=== PATIENT | female | born 1950 | race Hispanic/Latino ===

== ENCOUNTER 2018-12-28 16:58 | Inpatient (IN) | payer MEDICARE, OTHER ==
[~2018-12-28] VITALS: Ht 160 cm; Wt 67.2 kg
[2018-12-28] MEDS ORDERED: CEFTRIAXONE SODIUM 1 GM ONE (17:27)
[2018-12-28] MEDS ORDERED: SODIUM CHLORIDE 0.9% 50 ML IV ONE (17:28)
[2018-12-28] MEDS ORDERED: ACETAMINOPHEN EXTRA STRENGTH 500 MG TABLET ONE (17:28)
[2018-12-28 17:32] LABS: BASOPHILS % (AUTO) 0.3 % (0.0-5.0); EOSINOPHILS % (AUTO) 0.3 % (0.0-8.0); HEMATOCRIT 36.7 % (36-48); MEAN CORPUSCULAR HEMOGLOBIN 29.2 pg (27.0-33.0); MEAN CORPUSCULAR VOLUME 85.8 fL (79-99); MONOCYTES % (AUTO) 6.4 % (3.0-13.0); PLATELET COUNT (AUTO) 523 K/uL (130-400); RED BLOOD CELL COUNT(AUTO) 4.28 MIL/uL (4.00-5.50); RED CELL DISTRIBUTION WIDTH 12.8 % (11.0-15.5); WHITE BLOOD COUNT (AUTO) 22.9 K/uL (4.8-10.8)
[2018-12-28] MEDS ORDERED: ACETAMINOPHEN ELIXIR 325 MG/10.15ML UDCUP ONE (17:33)
[2018-12-28 17:47] LABS: CREATININE 0.8 mg/dL (0.5-1.5); INR 1.02 (0.85-1.15); PARTIAL THROMBOPLASTIN TIME 32.7 SEC (26.3-35.5); POTASSIUM 4.7 mmol/L (3.5-5.1); PROTHROMBIN TIME 10.7 SEC (9.6-11.6)
[2018-12-28 17:54] LABS: BILIRUBIN,TOTAL 0.9 mg/dL (0.2-1.0); TOTAL PROTEIN, SERUM 9.2 g/dL (6.0-8.3)
[2018-12-28 18:06] LABS: ALBUMIN 2.4 g/dL (3.5-5.0)
[2018-12-28] MEDS ORDERED: VANCOMYCIN 1GM+NS 250ML 250 ML IV ONE (18:18)
[2018-12-28] MEDS ORDERED: ZOSYN 3.375GM+NS 50ML 50 ML IV ONE (22:23)
[2018-12-28] MEDS ORDERED: INSULIN HUMULIN R 100 UNIT/ML 3ML ONE (22:24)
[2018-12-28] MEDS ORDERED: VANCOMYCIN PROTOCOL PER PHARMACY IV SCH (23:45)
[2018-12-28] MEDS ORDERED: SODIUM CHLORIDE 0.9% 10 ML VIAL IVP SCH (23:45)
[2018-12-28] MEDS ORDERED: ONDANSETRON HCL 4 MG/2 ML VIAL IVP PRN (23:45)
[2018-12-28] MEDS ORDERED: DEXTROSE 50%-WATER 50 ML DISP.SYRIN IV PRN (23:45)
[2018-12-28] MEDS ORDERED: ACETAMINOPHEN 325 MG TAB PO PRN (23:45)
[2018-12-28] MEDS ORDERED: MORPHINE SULFATE 2 MG/ML 1ML SYG IVP PRN (23:45)
[2018-12-28] MEDS ORDERED: GLUCAGON 1MG KIT 1 MG ML IM PRN (23:45)
[2018-12-29 05:30] VITALS: BP 144/67
[2018-12-29] MEDS: INSULIN R PO SS1 SQ SCH ×4 (06:41→20:56)
[2018-12-29 07:00] VITALS: BP 124/65
[2018-12-29] MEDS: ZOSYN 3.375GM+NS 50ML 50 ML IV SCH ×3 (08:21→16:20)
[2018-12-29] MEDS: ENOXAPARIN SODIUM 40 MG/0.4 ML SYRINGE SQ SCH (08:23)
[2018-12-29] MEDS ORDERED: GADODIAMIDE 5 MMOL/10 ML VIAL 5 MMOL/10 ML ML IV ONE (09:11)
--- NOTE | 2018-12-29 09:30 | NUR ---
TAKEN OFF THE UNIT TO MRI VIA W/C IN STABLE CONDITION.
--- NOTE | 2018-12-29 10:00 | NUR ---
RETURN TO THE FLOOR VIA W/C STABLE AND ALERT, NO ACUTE DISTRESS NOTED.
[2018-12-29] MEDS ORDERED: COMPOUND IV REFRIGERATED 1 EACH IVSOLN MISC PRN (10:15)
[2018-12-29 11:00] VITALS: BP 149/70
[2018-12-29] MEDS ORDERED: VANCOMYCIN 500MG+NS 100 ML IV SCH (11:00)
[2018-12-29] MEDS ORDERED: DIPH,PERTUSS(ACELL),TET VAC/PF 0.5 ML VIAL IM ONE ×2 (15:00→21:00)
--- NOTE | 2018-12-29 15:21 | NUR ---
CONSULT CALLED TO DR PRICE'S OFFICE, SPOKE WITH CHAGO ENRIQUEZ.
[2018-12-29 16:00] VITALS: BP 120/80
[2018-12-29] MEDS: CLINDAMYCIN 300 MG/D5W 50 ML 50 ML IV SCH ×2 (16:20→20:48)
--- NOTE | 2018-12-29 16:20 | NUR ---
Tdap VACCINATION UNAVAILABLE PHARMACY WAS NOTIFIED.
--- NOTE | 2018-12-29 18:00 | NUR ---
IA- DISCHARGE PLANNING SPOKE W PATIENT AND SISTER AT BEDSIDE - LIVES WITH SIBS, NEPHEW JOLENE RAMON TO SUPPLY TRANSPORT HOME, PT STATES USES [facility], STATES DOES NOT GO TO THE MD OFFICE. STATES WILLING TO GO TO A FACLITY IF HER SIS TER CAN BE BESIDE HER. DR. PRICE ARRIVED TO DO WOUND CARE- HE STATED HE COULD FOLLOW AT [facility] IF DISCHARGED THERE Addendum: 12/30/18 at 0837 by VÍCTOR GILBERT RN CM Amended: Links added.
--- NOTE | 2018-12-29 19:00 | NUR ---
DR PRICE CAME IN TO SEE THE PATIENT AND REMOVED THE SCABS FROM HER FEET AT THE BEDSIDE AND APPLIED DRESSING TO BOTH FEET. SAID THAT HE WILL HAVE TO PERFORM SURGERY TOMORROW.
[2018-12-29 20:00] VITALS: BP 133/62
[2018-12-29] MEDS: HYDROCODONE/ACETAMINOPHEN 5/325 MG TAB PO PRN (20:47)
[2018-12-29] MEDS: INSULIN GLARGINE 100 UNITS/ML 10 ML VIAL SQ SCH (21:00)
[2018-12-29 23:51] VITALS: BP 123/60
[2018-12-30] VITALS (24 sets, daily range): BP systolic 98–154; BP diastolic 50–83
[2018-12-30] MEDS: ZOSYN 3.375GM+NS 50ML 50 ML IV SCH ×4 (00:25→23:54)
[2018-12-30] MEDS: CLINDAMYCIN 300 MG/D5W 50 ML 50 ML IV SCH ×4 (03:19→20:37)
[2018-12-30 05:29] LABS: HEMATOCRIT 32.1 % (36-48); MEAN CORPUSCULAR HEMOGLOBIN 28.8 pg (27.0-33.0); MEAN CORPUSCULAR HGB CONC 33.2 g/dL (32.0-36.0); MEAN CORPUSCULAR VOLUME 86.7 fL (79-99); PLATELET COUNT (AUTO) 517 K/uL (130-400); RED BLOOD CELL COUNT(AUTO) 3.71 MIL/uL (4.00-5.50); RED CELL DISTRIBUTION WIDTH 12.9 % (11.0-15.5); WHITE BLOOD COUNT (AUTO) 21.5 K/uL (4.8-10.8)
[2018-12-30 05:54] LABS: ALBUMIN 1.9 g/dL (3.5-5.0); BILIRUBIN,TOTAL 0.7 mg/dL (0.2-1.0); CREATININE 0.8 mg/dL (0.5-1.5); MAGNESIUM 2.1 mg/dL (1.80-2.40); POTASSIUM 3.5 mmol/L (3.5-5.1); TOTAL PROTEIN, SERUM 7.1 g/dL (6.0-8.3)
[2018-12-30] MEDS: INSULIN R PO SS1 SQ SCH ×4 (06:06→20:42)
[2018-12-30] MEDS: ENOXAPARIN SODIUM 40 MG/0.4 ML SYRINGE SQ SCH (09:00)
[2018-12-30] MEDS ORDERED: DiphenhydrAMINE HCL 50 MG/ML VIAL IVP PRN (09:15)
--- NOTE | 2018-12-30 12:09 | NUR ---
RDSCREEN - LOW ALB Patient with DM Foot Ulcer. Patient NPO for procedure at time of visit. When medically feasible, rec to advance diet as tolerated to goal of Heart Healthy, 75gm CCD. Patient LBM 12/26/18. Patient monitored labs: Cl 99, Glu 226, Alb 1.9. RD to continue to monitor. Please notify RD as nutritional concerns arise. Thank you. Addendum: 12/30/18 at [address] Amended: Links added.
[2018-12-30] MEDS ORDERED: BUPIVACAINE/PF 0.5% 30ML VIAL ONE (12:42)
[2018-12-30] MEDS ORDERED: LIDOCAINE HCL 1% 20 ML VIAL ONE (12:49)
[2018-12-30] MEDS: VANCOMYCIN 1GM+NS 250ML 250 ML IV SCH (12:49)
[2018-12-30] MEDS ORDERED: PROPOFOL 10 MG/ML 20ML VIAL IV ONE ×3 (12:51→14:21)
[2018-12-30] MEDS ORDERED: LIDOCAINE PF 2% 5ML ABBOJECT ONE (12:51)
[2018-12-30] MEDS ORDERED: MIDAZOLAM HCL 1 MG/ML 2ML VIAL ONE (12:51)
[2018-12-30] MEDS ORDERED: MEPERIDINE-PF 25 MG/ML SYG ONE ×2 (15:07→15:15)
--- NOTE | 2018-12-30 17:25 | NUR ---
1400 clindamycin not given patient off unit.
[2018-12-30] MEDS: MORPHINE SULFATE 2 MG/ML 1ML SYG IVP PRN (18:26)
[2018-12-30] MEDS: SODIUM CHLORIDE 0.9% 1000ML 1,000 ML IV SCH (19:10)
[2018-12-30] MEDS: INSULIN GLARGINE 100 UNITS/ML 10 ML VIAL SQ SCH (20:44)
[2018-12-31] VITALS: BP_SYST 108; BP_SYST 137; BP_DIAS 56; BP_DIAS 68
[2018-12-31 00:23] LABS: APPEARANCE,URINE Clear (CLEAR); BILIRUBIN,URINE Negative (NEGATIVE); COLOR,URINE Yellow (YELLOW); GLUCOSE, URINE (UA) >=1000 mg/dL (NEGATIVE); KETONES,URINE Trace mg/dL (NEGATIVE); LEUKOCYTE ESTERASE ,URINE Negative (NEGATIVE); NITRATE,URINE Negative (NEGATIVE); OCCULT BLOOD,URINE Negative (NEGATIVE); PH,URINE 5.5 (5.0-8.0); PROTEIN,URINE Trace (NEGATIVE)
[2018-12-31 00:48] LABS: RBC,URINE 0-1 /HPF (0-1); WBC,URINE 0-1 /HPF (0-1)
[2018-12-31 00:49] LABS: BACTERIA,URINE Few /HPF (None Seen); SQUAMOUS EPITHELIAL CELL,UR 0-2 /HPF (0-2); YEAST,URINE BUDDING Moderate /HPF (None Seen)
[2018-12-31] MEDS: CLINDAMYCIN 300 MG/D5W 50 ML 50 ML IV SCH ×4 (02:02→20:15)
[2018-12-31 04:00] VITALS: BP 109/54
[2018-12-31] MEDS: SODIUM CHLORIDE 0.9% 1000ML 1,000 ML IV SCH ×2 (04:19→20:28)
[2018-12-31] MEDS: MORPHINE SULFATE 2 MG/ML 1ML SYG IVP PRN ×2 (04:27→16:07)
[2018-12-31 04:45] LABS: MEAN CORPUSCULAR HEMOGLOBIN 28.8 pg (27.0-33.0); MEAN CORPUSCULAR HGB CONC 33.5 g/dL (32.0-36.0); MEAN CORPUSCULAR VOLUME 85.9 fL (79-99); PLATELET COUNT (AUTO) 495 K/uL (130-400); RED BLOOD CELL COUNT(AUTO) 3.49 MIL/uL (4.00-5.50); RED CELL DISTRIBUTION WIDTH 12.8 % (11.0-15.5); WHITE BLOOD COUNT (AUTO) 14.8 K/uL (4.8-10.8)
[2018-12-31 05:02] LABS: CREATININE 0.7 mg/dL (0.5-1.5); POTASSIUM 3.2 mmol/L (3.5-5.1)
[2018-12-31] MEDS: INSULIN R PO SS1 SQ SCH ×4 (06:19→20:26)
[2018-12-31 08:00] VITALS: BP 118/66
[2018-12-31] MEDS: ZOSYN 3.375GM+NS 50ML 50 ML IV SCH ×3 (09:05→23:52)
[2018-12-31] MEDS: ENOXAPARIN SODIUM 40 MG/0.4 ML SYRINGE SQ SCH (09:06)
[2018-12-31] MEDS ORDERED: LACTULOSE 20 GM/30 ML UDCUP PO PRN (10:00)
[2018-12-31] MEDS ORDERED: LIDOCAINE HCL-MPF 1% 2ML VIAL IVP PRN (10:15)
[2018-12-31] MEDS ORDERED: POTASSIUM CHLORIDE 20 MEQ ERTAB PO PRN (10:15)
[2018-12-31] MEDS ORDERED: POTASSIUM CHLORIDE 10MEQ/100ML 100 ML IV PRN (10:15)
[2018-12-31 12:00] VITALS: BP 131/68
[2018-12-31] MEDS: VANCOMYCIN 1GM+NS 250ML 250 ML IV SCH (13:28)
[2018-12-31 16:00] VITALS: BP 149/77
[2018-12-31 19:00] VITALS: BP 130/61
[2018-12-31] MEDS: POTASSIUM CHLORIDE 10% ELIXIR 20 MEQ/15 ML UDCUP PO SCH (20:16)
[2018-12-31] MEDS: INSULIN GLARGINE 100 UNITS/ML 10 ML VIAL SQ SCH (20:27)
[2019-01-01] VITALS: BP 121/61
[2019-01-01] MEDS: SODIUM CHLORIDE 0.9% 1000ML 1,000 ML IV SCH ×4 (01:10→21:44)
[2019-01-01] MEDS: CLINDAMYCIN 300 MG/D5W 50 ML 50 ML IV SCH ×4 (01:57→21:09)
[2019-01-01 04:00] VITALS: BP 147/61
[2019-01-01] MEDS: INSULIN R PO SS1 SQ SCH ×4 (05:37→21:43)
[2019-01-01 07:00] VITALS: BP 142/55
[2019-01-01] MEDS: POTASSIUM CHLORIDE 10% ELIXIR 20 MEQ/15 ML UDCUP PO SCH (09:03)
[2019-01-01] MEDS: ENOXAPARIN SODIUM 40 MG/0.4 ML SYRINGE SQ SCH (09:06)
[2019-01-01] MEDS: ZOSYN 3.375GM+NS 50ML 50 ML IV SCH ×3 (09:14→23:15)
[2019-01-01 09:53] LABS: BASOPHILS % (AUTO) 0.4 % (0.0-5.0); EOSINOPHILS % (AUTO) 2.2 % (0.0-8.0); HEMATOCRIT 29.4 % (36-48); LYMPHOCYTES % (AUTO) 12.4 % (21.0-51.0); MEAN CORPUSCULAR HEMOGLOBIN 28.8 pg (27.0-33.0); MEAN CORPUSCULAR HGB CONC 33.5 g/dL (32.0-36.0); MONOCYTES % (AUTO) 7.6 % (3.0-13.0); NEUTROPHILS % (AUTO) 77.4 % (40.0-77.0); PLATELET COUNT (AUTO) 552 K/uL (130-400); RED BLOOD CELL COUNT(AUTO) 3.42 MIL/uL (4.00-5.50); RED CELL DISTRIBUTION WIDTH 12.7 % (11.0-15.5); WHITE BLOOD COUNT (AUTO) 15.3 K/uL (4.8-10.8)
[2019-01-01 10:04] LABS: CREATININE 0.6 mg/dL (0.5-1.5); POTASSIUM 4.3 mmol/L (3.5-5.1)
[2019-01-01 11:00] VITALS: BP 130/64
[2019-01-01] MEDS: VANCOMYCIN 1GM+NS 250ML 250 ML IV SCH ×2 (11:53→15:39)
[2019-01-01] MEDS: MORPHINE SULFATE 2 MG/ML 1ML SYG IVP PRN (11:56)
[2019-01-01 16:00] VITALS: BP 163/76
--- NOTE | 2019-01-01 16:15 | NUR ---
[facility] REFERRAL cm spoke to pt and family regarding [facility]. CM explained services provided and length of stay. Pt and family agreeable to plan. CM obtained consent for [facility] referral. CM to fax referral and f/u. Family also requesting assistance with medicaid application. CM to defer to [facility] for assistance. Pt also referred to Alisha with DAD's for provider assistance when discharged from [facility]. CM to f/u. Addendum: 01/01/19 at 1617 by ARMEN MARTINEZ CM Amended: Links added.
[2019-01-01 20:00] VITALS: BP 130/64
[2019-01-01] MEDS: INSULIN GLARGINE 100 UNITS/ML 10 ML VIAL SQ SCH (21:44)
[2019-01-02] VITALS (9 sets, daily range): BP systolic 128–166; BP diastolic 63–84
[2019-01-02] MEDS: VANCOMYCIN 1GM+NS 250ML 250 ML IV SCH (01:20)
[2019-01-02] MEDS: MORPHINE SULFATE 2 MG/ML 1ML SYG IVP PRN ×2 (01:25→03:38)
[2019-01-02] MEDS: CLINDAMYCIN 300 MG/D5W 50 ML 50 ML IV SCH ×2 (02:07→08:27)
[2019-01-02 05:35] LABS: HEMATOCRIT 28.5 % (36-48); MEAN CORPUSCULAR HEMOGLOBIN 28.4 pg (27.0-33.0); MEAN CORPUSCULAR HGB CONC 33.2 g/dL (32.0-36.0); MEAN CORPUSCULAR VOLUME 85.4 fL (79-99); PLATELET COUNT (AUTO) 562 K/uL (130-400); RED BLOOD CELL COUNT(AUTO) 3.34 MIL/uL (4.00-5.50); WHITE BLOOD COUNT (AUTO) 11.5 K/uL (4.8-10.8)
[2019-01-02 05:45] LABS: INR 1.05 (0.85-1.15); PARTIAL THROMBOPLASTIN TIME 33.7 SEC (26.3-35.5)
[2019-01-02 05:53] LABS: CREATININE 0.6 mg/dL (0.5-1.5); POTASSIUM 3.4 mmol/L (3.5-5.1)
[2019-01-02] MEDS: INSULIN R PO SS1 SQ SCH ×4 (06:07→21:41)
[2019-01-02] MEDS: ZOSYN 3.375GM+NS 50ML 50 ML IV SCH (08:27)
[2019-01-02] MEDS: SODIUM CHLORIDE 0.9% 1000ML 1,000 ML IV SCH ×2 (08:27→17:16)
[2019-01-02] MEDS: ENOXAPARIN SODIUM 40 MG/0.4 ML SYRINGE SQ SCH (08:45)
[2019-01-02] MEDS ORDERED: HEPARIN SODIUM 1000UNIT/ML 10ML VIAL ONE (10:25)
[2019-01-02] MEDS ORDERED: LIDOCAINE HCL 1% 20 ML VIAL ONE (10:25)
[2019-01-02] MEDS ORDERED: IODIXANOL 320 MG/ML 100 ML VIAL ONE (10:26)
[2019-01-02] MEDS ORDERED: NITROGLYCERIN 5 MG/ML 10 ML VIAL IV ONE (10:26)
[2019-01-02] MEDS ORDERED: FENTANYL CITRATE PF 50 MCG/1 ML 2ML VIAL ONE (11:00)
[2019-01-02] MEDS ORDERED: MIDAZOLAM HCL 1 MG/ML 2ML VIAL ONE (11:00)
[2019-01-02] MEDS ORDERED: SODIUM CHLORIDE 0.9% 1000ML 1,000 ML IV SCH (12:46)
[2019-01-02] MEDS ORDERED: TICAGRELOR 90 MG TABLET ONE (12:55)
[2019-01-02] MEDS ORDERED: ASPIRIN 325MG EC TAB 325 MG TABLET.DR PO ONE (12:55)
[2019-01-02] MEDS ORDERED: ASPIRIN 81MG TAB.CHEW ONE (13:05)
[2019-01-02] MEDS: METRONIDAZOLE 500MG/100ML BAG 100 ML IV SCH ×2 (14:20→21:26)
[2019-01-02] MEDS: CEFTRIAXONE SODIUM 2 GM VIAL IVP SCH (14:20)
--- NOTE | 2019-01-02 15:51 | NUR ---
CM Note: [facility] acceptance, MOT filled out, EMS arranged and faxed for today. Spoke to Rita w/[facility], pt has acceptance, MOT filled out pending MD and house super to sign, EMS arranged and faxed for today. As per Dr Freda shah dc tomorrow s/p angriogram w/Dr Bueno, pending Bian[facility] clearance re: poss revascularization. Primary nurse aware. CM to cont to follow up.
[2019-01-02] MEDS: ATORVASTATIN CALCIUM 40 MG TABLET PO SCH (21:26)
[2019-01-02] MEDS: INSULIN GLARGINE 100 UNITS/ML 10 ML VIAL SQ SCH (21:40)
[2019-01-02] MEDS ORDERED: TICAGRELOR 90 MG TABLET PO SCH (22:00)
[2019-01-03] VITALS (26 sets, daily range): BP systolic 106–158; BP diastolic 53–87
[2019-01-03] MEDS: SODIUM CHLORIDE 0.9% 1000ML 1,000 ML IV SCH ×3 (03:10→23:10)
[2019-01-03] MEDS: METRONIDAZOLE 500MG/100ML BAG 100 ML IV SCH ×4 (04:57→21:08)
[2019-01-03 05:21] LABS: HEMATOCRIT 29.7 % (36-48); MEAN CORPUSCULAR HGB CONC 33.7 g/dL (32.0-36.0); MEAN CORPUSCULAR VOLUME 85.9 fL (79-99); PLATELET COUNT (AUTO) 653 K/uL (130-400); RED BLOOD CELL COUNT(AUTO) 3.46 MIL/uL (4.00-5.50); WHITE BLOOD COUNT (AUTO) 12.4 K/uL (4.8-10.8)
[2019-01-03 05:33] LABS: CREATININE 0.7 mg/dL (0.5-1.5); POTASSIUM 3.3 mmol/L (3.5-5.1)
[2019-01-03] MEDS: INSULIN R PO SS1 SQ SCH ×4 (05:33→21:11)
--- NOTE | 2019-01-03 07:45 | NUR ---
Report to oncoming Nurse Informed Glen Mcmahan RN who is taking over, that the patient recieved [facility] last night Per Dr. Bueno order post angiogram. Also informed Glen Mcmahan RN that platelet this morning was also elevated. Patient is pending surgery with DR. Valeriy Woodruff
[2019-01-03] MEDS: CLOPIDOGREL BISULFATE 75 MG TAB PO SCH (09:00)
--- NOTE | 2019-01-03 11:10 | NUR ---
REPORT COMMUNICATED TO MD DR. PRICE MADE AWARE ABOUT THE TAKING BRILINTA S/P ANGIO YESTERDAY AND RESULTS OF PLT, NO NEW ORDERS AT THIS TIME.
--- NOTE | 2019-01-03 12:36 | NUR ---
PT SENT DOWN FOR DEBRIDEMENT OF THE RIGHT FOOT S/P SAME FOOT AMPUTATION WITH STABLE VS. NURSING WILL CONTINUE TO MONITOR.
[2019-01-03] MEDS ORDERED: LIDOCAINE HCL 1% 20 ML VIAL ONE (13:01)
[2019-01-03] MEDS ORDERED: BUPIVACAINE/PF 0.5% 30ML VIAL ONE (13:01)
[2019-01-03] MEDS ORDERED: PROPOFOL 10 MG/ML 20ML VIAL IV ONE (13:08)
[2019-01-03] MEDS ORDERED: LIDOCAINE PF 2% 5ML ABBOJECT ONE (13:08)
[2019-01-03] MEDS ORDERED: FENTANYL CITRATE PF 50 MCG/1 ML 2ML VIAL ONE (13:09)
[2019-01-03] MEDS: CEFTRIAXONE SODIUM 2 GM VIAL IVP SCH ×2 (13:40→13:45)
--- NOTE | 2019-01-03 13:56 | NUR ---
RD Follow-Up Note Patient NPO at time of screen. Pending debridement procedure. Patient tolerating 75gm CCD prior to NPO with PO at 100% and no report of GI distress. Patient with improved serum glucose. Patient monitored labs: K 3.3, Cl 100, Glu 144, Ca 8.3. RD to continue to monitor. Please notify RD as nutritional concerns arise. Thank you. Addendum: 01/03/19 at [address] Amended: Links added.
--- NOTE | 2019-01-03 15:45 | NUR ---
Pt back from wound debridement, stable vital signs, sanguineous wound drain noted, wound vac not functioning at this time, Dr. Woodruff paged to his cell phone X2, no call back yet from the MD. Pending troubleshooting of the wound vac and possible transfer to [facility] for continuity of care. Nursing will continue to follow up with the MD.
[2019-01-03] MEDS: MORPHINE SULFATE 2 MG/ML 1ML SYG IVP PRN ×2 (17:25→20:06)
--- NOTE | 2019-01-03 17:56 | NUR ---
SX UPDATE Dr. Woodruff present at bedside, assess pt right foot debridement and d/c wound vac, wound was packed with surgiform, abd pad, 4X4 gauze, and wrapped with rita band, no bleeding noted at this time, pt medicated for pain x1 during wound re-dressing, pt comfortable in bed, No dressing order given at this time, Dr. Woodruff will follow up closely concerning wound dressing himself.
[2019-01-03] MEDS ORDERED: HYDROMORPHONE HCL 0.5 MG/0.5 ML ML IVP PRN (18:00)
[2019-01-03] MEDS: ASPIRIN 81MG TAB.CHEW PO SCH (18:06)
[2019-01-03] MEDS: ATORVASTATIN CALCIUM 40 MG TABLET PO SCH (20:05)
[2019-01-03] MEDS: INSULIN GLARGINE 100 UNITS/ML 10 ML VIAL SQ SCH (20:11)
[2019-01-04] VITALS: BP 130/60
[2019-01-04 04:00] VITALS: BP 112/68
[2019-01-04] MEDS: METRONIDAZOLE 500MG/100ML BAG 100 ML IV SCH ×3 (05:55→21:13)
[2019-01-04] MEDS: INSULIN R PO SS1 SQ SCH ×4 (05:58→21:23)
[2019-01-04 07:00] VITALS: BP 118/67
[2019-01-04] MEDS: ASPIRIN 81MG TAB.CHEW PO SCH (09:20)
[2019-01-04] MEDS: SODIUM CHLORIDE 0.9% 1000ML 1,000 ML IV SCH ×2 (09:20→19:10)
[2019-01-04] MEDS: CLOPIDOGREL BISULFATE 75 MG TAB PO SCH (09:20)
[2019-01-04 10:40] LABS: HEMATOCRIT 24.3 % (36-48)
[2019-01-04 12:00] VITALS: BP 101/57
[2019-01-04 16:00] VITALS: BP 122/58
[2019-01-04] MEDS: HYDROCODONE/ACETAMINOPHEN 5/325 MG TAB PO PRN (16:24)
[2019-01-04] MEDS: CEFTRIAXONE SODIUM 2 GM VIAL IVP SCH (16:31)
[2019-01-04 20:00] VITALS: BP 101/50
[2019-01-04] MEDS: ATORVASTATIN CALCIUM 40 MG TABLET PO SCH (21:14)
[2019-01-04] MEDS: INSULIN GLARGINE 100 UNITS/ML 10 ML VIAL SQ SCH (21:21)
[2019-01-05] VITALS: BP 120/77
[2019-01-05 04:00] VITALS: BP 134/70
[2019-01-05 05:19] LABS: HEMATOCRIT 22.2 % (36-48); MEAN CORPUSCULAR HEMOGLOBIN 29.3 pg (27.0-33.0); MEAN CORPUSCULAR HGB CONC 33.9 g/dL (32.0-36.0); MEAN CORPUSCULAR VOLUME 86.4 fL (79-99); PLATELET COUNT (AUTO) 631 K/uL (130-400); RED BLOOD CELL COUNT(AUTO) 2.57 MIL/uL (4.00-5.50); RED CELL DISTRIBUTION WIDTH 12.6 % (11.0-15.5); WHITE BLOOD COUNT (AUTO) 10.3 K/uL (4.8-10.8)
[2019-01-05 05:29] LABS: ALBUMIN 1.6 g/dL (3.5-5.0); BILIRUBIN,TOTAL 0.2 mg/dL (0.2-1.0); CREATININE 0.7 mg/dL (0.5-1.5); MAGNESIUM 1.9 mg/dL (1.80-2.40); POTASSIUM 3.3 mmol/L (3.5-5.1); TOTAL PROTEIN, SERUM 5.9 g/dL (6.0-8.3)
[2019-01-05] MEDS: INSULIN R PO SS1 SQ SCH ×4 (06:18→21:49)
[2019-01-05] MEDS: POTASSIUM CHLORIDE 10% ELIXIR 20 MEQ/15 ML UDCUP PO PRN ×2 (06:22→14:53)
[2019-01-05] MEDS: METRONIDAZOLE 500MG/100ML BAG 100 ML IV SCH ×3 (06:22→21:44)
[2019-01-05] MEDS: SODIUM CHLORIDE 0.9% 1000ML 1,000 ML IV SCH ×2 (06:23→14:52)
[2019-01-05 07:00] VITALS: BP 141/67
--- NOTE | 2019-01-05 07:30 | NUR ---
PATIENT IS RECEIVED IN BED WITH HER EYES CLOSED, OPENS TO VOICE STIMULI, ORIENTED TO PERSON, PLACE, AND TIME. DENIES PAIN AT THIS TIME, IVF IS INFUSING WITHOUT PROBLEM, BLE ARE ELEVATED OBSERVED WITH HUMBERTO WRAP DRESSINGS. PLAN OF CARE DISCUSSED WITH HER AND SHE VOICED UNDERSTANDING. FAMILY IS AT THE BEDSIDE WITH HER
--- NOTE | 2019-01-05 09:00 | NUR ---
FIRST AM ASSESSMENT WAS MEANT FOR ANOTHER PATIENT. PLEASE DISREGARD.
[2019-01-05] MEDS: CLOPIDOGREL BISULFATE 75 MG TAB PO SCH (09:06)
[2019-01-05] MEDS: ASPIRIN 81MG TAB.CHEW PO SCH (09:06)
[2019-01-05 11:00] VITALS: BP 130/73
[2019-01-05] MEDS: CEFTRIAXONE SODIUM 2 GM VIAL IVP SCH (14:51)
--- NOTE | 2019-01-05 15:30 | NUR ---
24 HR URINE COLLECTION HAS STARTED AND PLACED ON ICE. WILL ENDORSE TO THE INCOMING SHIFT.
[2019-01-05 16:00] VITALS: BP 135/70
[2019-01-05 20:00] VITALS: BP 140/83
[2019-01-05] MEDS: ATORVASTATIN CALCIUM 40 MG TABLET PO SCH (21:44)
[2019-01-05] MEDS: INSULIN GLARGINE 100 UNITS/ML 10 ML VIAL SQ SCH (22:16)
[2019-01-06] VITALS: BP 132/71
[2019-01-06 04:00] VITALS: BP 131/69
[2019-01-06] MEDS: SODIUM CHLORIDE 0.9% 1000ML 1,000 ML IV SCH (04:30)
[2019-01-06] MEDS: METRONIDAZOLE 500MG/100ML BAG 100 ML IV SCH ×2 (05:00→15:56)
[2019-01-06 05:11] LABS: HEMATOCRIT 23.7 % (36-48); MEAN CORPUSCULAR HEMOGLOBIN 28.9 pg (27.0-33.0); MEAN CORPUSCULAR HGB CONC 33.9 g/dL (32.0-36.0); MEAN CORPUSCULAR VOLUME 85.3 fL (79-99); PLATELET COUNT (AUTO) 698 K/uL (130-400); RED BLOOD CELL COUNT(AUTO) 2.78 MIL/uL (4.00-5.50); RED CELL DISTRIBUTION WIDTH 12.9 % (11.0-15.5); WHITE BLOOD COUNT (AUTO) 10.8 K/uL (4.8-10.8)
[2019-01-06] MEDS: INSULIN R PO SS1 SQ SCH ×3 (05:21→18:25)
[2019-01-06 05:25] LABS: CREATININE 0.5 mg/dL (0.5-1.5); MAGNESIUM 1.8 mg/dL (1.80-2.40); POTASSIUM 3.8 mmol/L (3.5-5.1)
[2019-01-06 05:50] LABS: % IRON SATURATION 23.5 % (22-44)
[2019-01-06 08:00] VITALS: BP 149/67
[2019-01-06] MEDS ORDERED: COMPOUND IV MISC 1 EACH IVSOLN MISC PRN (08:15)
[2019-01-06] MEDS ORDERED: IRON SUCROSE COMPLEX 100 MG in SODIUM CHLORIDE 0.9% 50 ML IV SCH (09:00)
[2019-01-06] MEDS: ASPIRIN 81MG TAB.CHEW PO SCH (10:39)
[2019-01-06] MEDS: CLOPIDOGREL BISULFATE 75 MG TAB PO SCH (10:39)
[2019-01-06 11:53] VITALS: BP 138/67
[2019-01-06] MEDS: CEFTRIAXONE SODIUM 2 GM VIAL IVP SCH (15:46)
[2019-01-06 16:00] VITALS: BP 141/54
--- NOTE | 2019-01-06 16:01 | NUR ---
PALOMINO CATH REMOVED TOLERATED WELL, NO DISTRESS. NO BLEEDING, REMOVED WITH 10ML WATER BALLOON, WHILE PATIENT LYING FLAT SUPINE POSITION.
--- NOTE | 2019-01-06 18:20 | NUR ---
REPORT GIVEN TO NURSE LIGHT, FROM [facility]
--- NOTE | 2019-01-06 19:00 | NUR ---
D/C TO [facility] VIA EMS DRESSING CHANGES DONE, PICTURES TAKEN, AOX3, IV'S DRY INTACT PATENT, PATIENT IS TO FOLLOW UP AT [facility] FOR ANTIBIOTIC THERAPY AND WOUND CARE. TELE REMOVED. PATIENT VERBALIZES UNDERSTANDING TO FOLLOW UP WITH YO LINDQUIST, AND ROBERT.
[2019-01-06 19:41] LABS: COLLECTION PERIOD,URINE 24 HR; TOTAL VOLUME 24HRS,URINE 3500 mL; TPROTEIN TIMED,URINE 8 mg/dL; TPROTEIN U,24HR CALC 280 mg/24HR (0-165)
== END 2019-01-06 19:05 | DRG 853 ==
LOC: EDH 16:58 → EDHIP 21:51 → 3CH 12-29 05:30
PROVIDERS: ADMIT Internal Medicine Infectious Disease; ATTEND Internal Medicine Infectious Disease
PROC: 0Y6P0Z0 Detachment at Right 1st Toe, Complete, Open Approach (ICD-10-PCS; principal; 2018-12-30 13:00)
PROC: 047P3ZZ Dilation of Right Anterior Tibial Artery, Percutaneous Approach (ICD-10-PCS; 2019-01-02)
PROC: B41D1ZZ Fluoroscopy of Aorta and Bilateral Lower Extremity Arteries using Low Osmolar Contrast (ICD-10-PCS; 2019-01-02)
PROC: 047M3ZZ Dilation of Right Popliteal Artery, Percutaneous Approach (ICD-10-PCS; 2019-01-02)
PROC: 04CM0ZZ Extirpation of Matter from Right Popliteal Artery, Open Approach (ICD-10-PCS; 2019-01-02)
PROC: 04CM3ZZ Extirpation of Matter from Right Popliteal Artery, Percutaneous Approach (ICD-10-PCS; 2019-01-02)
PROC: 04CP3ZZ Extirpation of Matter from Right Anterior Tibial Artery, Percutaneous Approach (ICD-10-PCS; 2019-01-02)
PROC: 0KBV0ZZ Excision of Right Foot Muscle, Open Approach (ICD-10-PCS; 2019-01-03)
DX: A41.9 Sepsis, unspecified organism (principal); A48.0 Gas gangrene; M72.6 Necrotizing fasciitis; L02.611 Cutaneous abscess of right foot; M86.9 Osteomyelitis, unspecified; L03.115 Cellulitis of right lower limb; M86.10 Other acute osteomyelitis, unspecified site; E44.1 Mild protein-calorie malnutrition; E11.621 Type 2 diabetes mellitus with foot ulcer; E11.69 Type 2 diabetes mellitus with other specified complication; L97.519 Non-pressure chronic ulcer of other part of right foot with unspecified severity; I10 Essential (primary) hypertension; E11.51 Type 2 diabetes mellitus with diabetic peripheral angiopathy without gangrene; E11.622 Type 2 diabetes mellitus with other skin ulcer; L60.2 Onychogryphosis; L60.0 Ingrowing nail; B35.1 Tinea unguium; E87.6 Hypokalemia; D50.9 Iron deficiency anemia, unspecified; F32.9 Major depressive disorder, single episode, unspecified; Z83.3 Family history of diabetes mellitus; Z91.19 Patient's noncompliance with other medical treatment and regimen
CPT/HCPCS: 36415; 37229; 73620; 73720; 75710; 75774; 80048; 80053; 80202; 81001; 82728; 82948; 83540; 83550; 83605; 83735; 83883; 84132; 84156; 85014; 85018; 85025; 85027; 85347; 85610; 85730; 86334; 87040; 87070; 87076; 88304; 88305; 88311; 90715; 93925; 99156; 99157; 99291; A4218; A4344; A9579; C1760; C1769; C1894; G0378; J0696; J1644; J1650; J1756; J1815; J2001; J2175; J2250; J2405; J2543; J2704; J3010; J3370; J3490; J7030; Q9967